=== PATIENT | female | born 1945 | race Caucasian/White ===

== ENCOUNTER 2022-11-03 20:04 | Inpatient (IN) | payer MEDICARE, MEDICAID ==
[~2022-11-03] VITALS: Ht 152.4 cm; Wt 71.2 kg
[2022-11-03 20:03] VITALS: RESP 32
[2022-11-03] MEDS ORDERED: FUROSEMIDE 40MG/4ML VIAL IV ONE (20:30)
[2022-11-03] MEDS ORDERED: ASPIRIN 81MG TABLET PO ONE (20:30)
[2022-11-03 20:34] LABS: BASOPHILS % 0.2 % (0.0-2.0); EOSINOPHILS % 1.7 % (0.0-5.0); HEMATOCRIT. 32.8 % (36.0-48.0); HEMOGLOBIN. 11.2 g/dL (12.0-16.0); MEAN CORPUSCULAR HEMOGLOBIN 30.9 pg (28.0-32.0); MEAN CORPUSCULAR VOLUME 90.7 fL (81.0-99.0); MEAN PLATELET VOLUME 8.1 fl (7.4-10.4); MONOCYTES % 7.1 % (2.0-8.0); PLATELET 221 x1000/uL (130-400); RED BLOOD CELL COUNT 3.61 mill/uL (4.2-5.4); RED CELL DISTRIBUTION WIDTH 14.5 % (11.6-14.6)
[2022-11-03 20:42] LABS: BG CARBOXYHEMOGLOBIN 0.3 % (0.5-1.5); BG DEOXYHEMOGLOBIN 3.1 % (0.0-5.0); BG FRACTION INSPIRED OXYGEN 40; BG HCO3 ACT 20.3 mmol/L (22.0-26.0); BG METHEMOGLOBIN 0.3 % (0.0-1.5); BG OXYGEN SATURATION 96.9 % (92.0-98.5); BG OXYHEMOGLOBIN 96.3 % (94.0-97.0); BG PCO2 30.7 mmHg (35.0-45.0); BG PH 7.438 (7.350-7.450); BG PO2 94.1 mmHg (75.0-100.0); BG SAMPLE SITE LH; BG TOTAL HEMOGLOBIN 11.3 g/dL (12.0-18.0)
[2022-11-03 20:44] LABS: INR 1.2; PARTIAL THROMBOPLASTIN TIME 28.9 sec (23.4-31.0); PROTHROMBIN TIME 12.7 sec (9.6-11.0)
[2022-11-03 20:48] LABS: CHLORIDE 103 mEq/L (98-107)
[2022-11-03] MEDS ORDERED: HYDROCODONE/ACETAMINOPHEN 5/325MG TABLET PO PRN (22:00)
[2022-11-03] MEDS ORDERED: CLONIDINE 0.1MG TABLET PO PRN (22:00)
[2022-11-03] MEDS ORDERED: DOCUSATE SODIUM 100MG CAPSULE PO PRN (22:00)
[2022-11-03] MEDS ORDERED: GUAIFENESIN 200MG/10ML SUGAR FREE UDC PO PRN (22:00)
[2022-11-03] MEDS ORDERED: ACETAMINOPHEN 325MG TABLET PO PRN ×2 (22:00)
[2022-11-03] MEDS ORDERED: ONDANSETRON HCL 4MG/2ML INJ IV PRN (22:00)
[2022-11-03] MEDS ORDERED: MAGNESIUM/ALUMINUM HYDROXIDE/SIMETHICONE 30ML UDC PO PRN (22:00)
[2022-11-03] MEDS ORDERED: IPRATROPIUM/ALBUTEROL 0.5-3(2.5)MG/3ML NEB HHN PRN (22:00)
[2022-11-03] MEDS ORDERED: DEXTROSE 50% WATER 50ML SYRINGE IV PRN (22:00)
[2022-11-03 22:45] VITALS: RESP 24
[2022-11-03 22:48] LABS: TOTAL IRON BINDING CAPACITY 277 ug/dL (250-450)
[2022-11-03 23:07] LABS: FERRITIN 561 ng/mL (10-291)
[2022-11-03 23:20] LABS: FOLIC ACID (FOLATE) SERUM >20 ng/mL ng/mL (>5.38); VITAMIN B12 SERUM 596 pg/mL (211-911)
[2022-11-03 23:21] LABS: CLARITY URINE CLEAR (CLEAR); COLOR URINE YELLOW (YELLOW); KETONES URINE NEGATIVE (NEGATIVE); LEUKOCYTE ESTERASE URINE NEGATIVE (NEGATIVE); NITRITE URINE NEGATIVE (NEGATIVE); OCCULT BLOOD URINE NEGATIVE (NEGATIVE); PROTEIN URINE NEGATIVE (NEGATIVE); SPECIFIC GRAVITY URINE 1.007 (1.005-1.030); UROBILINOGEN URINE 0.2 E.U./dL (0.2-1.0)
[2022-11-03 23:40] LABS: SODIUM URINE RANDOM 87 mEq/L
[2022-11-04] VITALS (13 sets, daily range): BP systolic 127–141; BP diastolic 51–79; PULSE 70–95; RESP 17–33; TEMP 97.6–98; O2SAT 92–96
[2022-11-04] MEDS ORDERED: AVAT20TA PO (02:46)
[2022-11-04] MEDS ORDERED: ATOR-2 PO (02:47)
[2022-11-04] MEDS ORDERED: AMLO-337 MT (02:48)
[2022-11-04] MEDS ORDERED: FERR325T6 PO (02:48)
[2022-11-04] MEDS ORDERED: MECL-159 PO (02:49)
[2022-11-04] MEDS ORDERED: FOLI0.4T6 MT (02:50)
[2022-11-04] MEDS ORDERED: FENO145T25 PO (02:51)
[2022-11-04] MEDS ORDERED: SACU1TAB7 MT (02:51)
[2022-11-04] MEDS ORDERED: MIRT45TA83 PO (02:52)
[2022-11-04] MEDS ORDERED: TIMO15DR12 EACHEYE (02:53)
[2022-11-04] MEDS ORDERED: LEVO100T9 MT (02:54)
[2022-11-04] MEDS ORDERED: ISMO20 MT (02:55)
[2022-11-04] MEDS ORDERED: DOCU100T MT (02:56)
[2022-11-04] MEDS ORDERED: LORA2DIS6 SQ (02:56)
[2022-11-04] MEDS ORDERED: ESOM40CA PO (02:57)
[2022-11-04] MEDS ORDERED: MULT-1116 MT (02:58)
[2022-11-04] MEDS ORDERED: BUPR-46 PO (02:58)
[2022-11-04] MEDS ORDERED: ASPI-986 MT (02:59)
[2022-11-04] MEDS: LORAZEPAM 0.5MG TABLET PO PRN ×2 (04:31→15:57)
[2022-11-04] MEDS: BLOOD SUGAR DIAGNOSTIC STRIP TEST SCH ×5 (07:44→20:03)
[2022-11-04] MEDS ORDERED: INSULIN LISPRO 100 UNITS/ML SUBCUT SCH (08:00)
[2022-11-04] MEDS ORDERED: DEXTROSE 50% WATER 50ML SYRINGE IV PRN (08:45)
[2022-11-04] MEDS: INSULIN LISPRO 100 UNITS/ML SUBCUT SCH ×4 (08:58→20:03)
[2022-11-04] MEDS: LEVOTHYROXINE SODIUM 25MCG TABLET PO SCH (08:59)
[2022-11-04] MEDS: ASPIRIN 81MG EC TABLET PO SCH (08:59)
[2022-11-04] MEDS: FUROSEMIDE 40MG/4ML VIAL IV SCH ×2 (09:00→17:00)
[2022-11-04] MEDS: AMLODIPINE 5MG TABLET PO SCH (09:00)
[2022-11-04 09:01] LABS: BASOPHILS % 0.3 % (0.0-2.0); EOSINOPHILS % 0.4 % (0.0-5.0); HEMATOCRIT. 30.1 % (36.0-48.0); HEMOGLOBIN. 10.4 g/dL (12.0-16.0); LYMPHOCYTES % 7.7 % (20.0-50.0); MEAN CORPUSCULAR HEMOGLOBIN 30.9 pg (28.0-32.0); MEAN CORPUSCULAR VOLUME 89.1 fL (81.0-99.0); MEAN PLATELET VOLUME 8.2 fl (7.4-10.4); MONOCYTES % 9.6 % (2.0-8.0); PLATELET 168 x1000/uL (130-400); RED BLOOD CELL COUNT 3.38 mill/uL (4.2-5.4); RED CELL DISTRIBUTION WIDTH 14.2 % (11.6-14.6)
[2022-11-04] MEDS: ENOXAPARIN 40MG/0.4ML SYR SUBCUT SCH (09:01)
[2022-11-04] MEDS: PANTOPRAZOLE SODIUM 40 MG/VIAL IV SCH (09:03)
[2022-11-04 09:11] LABS: CHLORIDE 105 mEq/L (98-107)
[2022-11-04 09:24] LABS: HDL CHOLESTEROL 60 mg/dL (40-59); LDL CHOLESTEROL 32 mg/dL (5-100); T4 FREE 1.11 ng/dL (0.76-1.46)
[2022-11-04] MEDS ORDERED: NALOXONE HCL 0.4MG/ML VIAL IV PRN (10:45)
[2022-11-04] MEDS ORDERED: BLOOD SUGAR DIAGNOSTIC STRIP TEST SCH (12:30)
[2022-11-04] MEDS: ATORVASTATIN CALCIUM 40MG TABLET PO SCH (20:27)
[2022-11-04] MEDS: IPRATROPIUM/ALBUTEROL 0.5-3(2.5)MG/3ML NEB HHN SCH (20:29)
[2022-11-05] VITALS (10 sets, daily range): BP systolic 126–158; BP diastolic 53–78; PULSE 68–88; RESP 16–24; TEMP 97.9–99.5; O2SAT 96–98
[2022-11-05] MEDS: IPRATROPIUM/ALBUTEROL 0.5-3(2.5)MG/3ML NEB HHN SCH ×4 (00:19→21:05)
[2022-11-05 05:24] LABS: BASOPHILS % 0.5 % (0.0-2.0); EOSINOPHILS % 1.8 % (0.0-5.0); HEMOGLOBIN. 9.4 g/dL (12.0-16.0); LYMPHOCYTES % 15.4 % (20.0-50.0); MEAN CORPUSCULAR VOLUME 89.3 fL (81.0-99.0); MEAN PLATELET VOLUME 8.2 fl (7.4-10.4); MONOCYTES % 10.3 % (2.0-8.0); PLATELET 159 x1000/uL (130-400); RED BLOOD CELL COUNT 3.02 mill/uL (4.2-5.4); RED CELL DISTRIBUTION WIDTH 14.4 % (11.6-14.6)
[2022-11-05 05:37] LABS: CHLORIDE 103 mEq/L (98-107)
[2022-11-05] MEDS: BLOOD SUGAR DIAGNOSTIC STRIP TEST SCH ×4 (06:20→20:12)
[2022-11-05] MEDS: LEVOTHYROXINE SODIUM 25MCG TABLET PO SCH (06:36)
[2022-11-05] MEDS: INSULIN LISPRO 100 UNITS/ML SUBCUT SCH ×4 (06:37→20:24)
[2022-11-05] MEDS: ASPIRIN 81MG EC TABLET PO SCH (09:10)
[2022-11-05] MEDS: FUROSEMIDE 40MG/4ML VIAL IV SCH ×2 (09:10→18:06)
[2022-11-05] MEDS: AMLODIPINE 5MG TABLET PO SCH (09:11)
[2022-11-05] MEDS: ENOXAPARIN 40MG/0.4ML SYR SUBCUT SCH (09:12)
[2022-11-05] MEDS: PANTOPRAZOLE SODIUM 40 MG/VIAL IV SCH (10:16)
[2022-11-05] MEDS: LORAZEPAM 0.5MG TABLET PO PRN ×2 (14:54→20:51)
[2022-11-05] MEDS: SPIRONOLACTONE 25MG TABLET PO SCH (18:09)
[2022-11-05] MEDS: ATORVASTATIN CALCIUM 40MG TABLET PO SCH (20:23)
[2022-11-06] VITALS (8 sets, daily range): BP systolic 117–148; BP diastolic 50–72; PULSE 67–84; RESP 14–20; TEMP 97.5–98.3; O2SAT 97
[2022-11-06] MEDS: IPRATROPIUM/ALBUTEROL 0.5-3(2.5)MG/3ML NEB HHN SCH ×2 (01:20→09:13)
[2022-11-06] MEDS: BLOOD SUGAR DIAGNOSTIC STRIP TEST SCH ×4 (06:17→21:17)
[2022-11-06] MEDS: SPIRONOLACTONE 25MG TABLET PO SCH ×2 (06:17→18:00)
[2022-11-06] MEDS: INSULIN LISPRO 100 UNITS/ML SUBCUT SCH ×4 (06:17→21:00)
[2022-11-06] MEDS: LEVOTHYROXINE SODIUM 25MCG TABLET PO SCH (06:18)
[2022-11-06 08:36] LABS: BASOPHILS % 0.8 % (0.0-2.0); EOSINOPHILS % 5.8 % (0.0-5.0); LYMPHOCYTES % 19.3 % (20.0-50.0); MEAN CORPUSCULAR HEMOGLOBIN 30.7 pg (28.0-32.0); MEAN CORPUSCULAR VOLUME 89.4 fL (81.0-99.0); MEAN PLATELET VOLUME 8.6 fl (7.4-10.4); MONOCYTES % 13.7 % (2.0-8.0); NEUTROPHILS % 60.4 % (40.0-76.0); PLATELET 181 x1000/uL (130-400); RED BLOOD CELL COUNT 3.24 mill/uL (4.2-5.4); RED CELL DISTRIBUTION WIDTH 14.2 % (11.6-14.6)
[2022-11-06 08:42] LABS: CHLORIDE 96 mEq/L (98-107)
[2022-11-06 08:54] LABS: PHOSPHORUS 4.6 mg/dL (2.5-4.9)
[2022-11-06] MEDS: PANTOPRAZOLE SODIUM 40 MG/VIAL IV SCH (10:05)
[2022-11-06] MEDS: ENOXAPARIN 40MG/0.4ML SYR SUBCUT SCH (10:06)
[2022-11-06] MEDS: AMLODIPINE 5MG TABLET PO SCH (10:07)
[2022-11-06] MEDS: ASPIRIN 81MG EC TABLET PO SCH (10:08)
[2022-11-06] MEDS: FUROSEMIDE 40MG/4ML VIAL IV SCH ×2 (10:08→17:00)
[2022-11-06] MEDS: LORAZEPAM 0.5MG TABLET PO PRN ×2 (14:43→21:36)
[2022-11-06] MEDS: ATORVASTATIN CALCIUM 40MG TABLET PO SCH (21:30)
[2022-11-07] VITALS: BP 145/60; PULSE 90; RESP 18; TEMP 98.4
[2022-11-07] MEDS: SPIRONOLACTONE 25MG TABLET PO SCH (05:55)
[2022-11-07 06:00] VITALS: BP 132/65; PULSE 68; RESP 18; TEMP 98.6
[2022-11-07] MEDS: LEVOTHYROXINE SODIUM 25MCG TABLET PO SCH (06:10)
[2022-11-07] MEDS: BLOOD SUGAR DIAGNOSTIC STRIP TEST SCH (06:10)
[2022-11-07 06:28] LABS: HEMATOCRIT. 29.6 % (36.0-48.0); HEMOGLOBIN. 10.4 g/dL (12.0-16.0); MEAN CORPUSCULAR VOLUME 88.2 fL (81.0-99.0); MEAN PLATELET VOLUME 8.3 fl (7.4-10.4); PLATELET 202 x1000/uL (130-400); RED BLOOD CELL COUNT 3.36 mill/uL (4.2-5.4); RED CELL DISTRIBUTION WIDTH 13.9 % (11.6-14.6)
[2022-11-07 06:31] LABS: CHLORIDE 95 mEq/L (98-107)
[2022-11-07] MEDS: INSULIN LISPRO 100 UNITS/ML SUBCUT SCH (07:56)
[2022-11-07 08:00] VITALS: BP 138/66; PULSE 67; RESP 20; TEMP 97.3
[2022-11-07] MEDS: ENOXAPARIN 40MG/0.4ML SYR SUBCUT SCH (08:22)
[2022-11-07] MEDS: ASPIRIN 81MG EC TABLET PO SCH (08:23)
[2022-11-07] MEDS: FUROSEMIDE 40MG/4ML VIAL IV SCH (08:23)
[2022-11-07] MEDS: AMLODIPINE 5MG TABLET PO SCH (08:23)
[2022-11-07] MEDS: PANTOPRAZOLE SODIUM 40 MG/VIAL IV SCH (08:23)
[2022-11-07] MEDS ORDERED: FURO-151 MT (08:28)
[2022-11-07] MEDS ORDERED: AMLO2.5T2 MT (08:28)
[2022-11-07 09:31] LABS: PLATELET ESTIMATE NORMAL
[2022-11-07 09:40] VITALS: BP 138/66; PULSE 67; TEMP 97.3; O2SAT 96
== END 2022-11-07 11:00 | disposition home health service (06) | DRG 291 ==
LOC: ER 20:04 → ENRESERV 11-04 01:47 → 5EST 11-04 02:12 → 8WST 11-04 14:50
PROVIDERS: ADMIT Internal Medicine; ATTEND Internal Medicine
PROC: 5A09357 Assistance with Respiratory Ventilation, Less than 24 Consecutive Hours, Continuous Positive Airway Pressure (ICD-10-PCS; principal; 2022-11-03)
DX: I11.0 Hypertensive heart disease with heart failure (principal); I50.43 Acute on chronic combined systolic (congestive) and diastolic (congestive) heart failure; J96.01 Acute respiratory failure with hypoxia; N17.0 Acute kidney failure with tubular necrosis; E87.1 Hypo-osmolality and hyponatremia; E03.9 Hypothyroidism, unspecified; E11.9 Type 2 diabetes mellitus without complications; E78.5 Hyperlipidemia, unspecified; D64.9 Anemia, unspecified; E83.51 Hypocalcemia; F32.A Depression, unspecified; I25.2 Old myocardial infarction; F41.9 Anxiety disorder, unspecified; Z88.0 Allergy status to penicillin; Z95.2 Presence of prosthetic heart valve; Z95.0 Presence of cardiac pacemaker; M81.0 Age-related osteoporosis without current pathological fracture
CPT/HCPCS: 36415; 36600; 71045; 76770; 80053; 80061; 81003; 82375; 82607; 82728; 82746; 82805; 82947; 82962; 83036; 83540; 83550; 83735; 83880; 83935; 84100; 84300; 84439; 84443; 84484; 85025; 85379; 93005; 93306; 93970; 94640; 94660; 97162; 99291; C9113; J1650; J1815; J1940

== ENCOUNTER 2022-12-07 04:56 | Inpatient (IN) | payer MEDICARE, MEDICAID ==
[2022-12-07] VITALS (8 sets, daily range): BP systolic 125–127; BP diastolic 53–64; PULSE 63–69; RESP 15–33; TEMP 98.1; O2SAT 97–99
[~2022-12-07] VITALS: Ht 160 cm; Wt 83.3 kg
[~2022-12-07 04:56] MED LIST: AMLO2.5T2 MT; ASPI-986 MT; ATOR-2 PO; AVAT20TA PO; BUPR-46 PO; DOCU100T MT; ESOM40CA PO; FENO145T25 PO; FERR325T6 PO; FOLI0.4T6 MT; FURO-151 MT; ISMO20 MT; LEVO100T9 MT; MULT-1116 MT; SACU1TAB7 MT; TIMO15DR12 EACHEYE
[2022-12-07] MEDS ORDERED: NITROGLYCERIN OINT 1GM/INCH UDPKT TD ONE (05:15)
[2022-12-07] MEDS ORDERED: FUROSEMIDE 40MG/4ML VIAL IV ONE (05:15)
[2022-12-07] MEDS ORDERED: NITROGLYCERIN 0.4MG TABLET SL SL PRN (05:15)
[2022-12-07] MEDS ORDERED: HYDRALAZINE 20MG/ML VIAL IV ONE (05:30)
[2022-12-07 05:49] LABS: BASOPHILS % 0.8 % (0.0-2.0); EOSINOPHILS % 4.6 % (0.0-5.0); HEMATOCRIT. 33.5 % (36.0-48.0); HEMOGLOBIN. 11.4 g/dL (12.0-16.0); LYMPHOCYTES % 41.2 % (20.0-50.0); MEAN CORPUSCULAR HEMOGLOBIN 31.1 pg (28.0-32.0); MEAN CORPUSCULAR VOLUME 91.3 fL (81.0-99.0); MEAN PLATELET VOLUME 8.6 fl (7.4-10.4); MONOCYTES % 10.5 % (2.0-8.0); NEUTROPHILS % 42.9 % (40.0-76.0); PLATELET 234 x1000/uL (130-400); RED BLOOD CELL COUNT 3.67 mill/uL (4.2-5.4); RED CELL DISTRIBUTION WIDTH 14.8 % (11.6-14.6)
[2022-12-07 06:04] LABS: INR 1.2; PROTHROMBIN TIME 12.8 sec (9.6-11.0)
[2022-12-07 06:05] LABS: CHLORIDE 106 mEq/L (98-107)
[2022-12-07 06:42] LABS: BG BASE EXCESS 1.3 mmol/L (-2.0-2.0); BG CARBOXYHEMOGLOBIN 0.6 % (0.5-1.5); BG DEOXYHEMOGLOBIN 0.4 % (0.0-5.0); BG FRACTION INSPIRED OXYGEN 100; BG HCO3 ACT 25.9 mmol/L (22.0-26.0); BG METHEMOGLOBIN 0.4 % (0.0-1.5); BG OXYGEN SATURATION 99.6 % (92.0-98.5); BG OXYHEMOGLOBIN 98.6 % (94.0-97.0); BG PH 7.419 (7.350-7.450); BG SAMPLE SITE RIGHT RADIAL; BG TOTAL HEMOGLOBIN 14.7 g/dL (12.0-18.0); BG VENT MODE MASK - BIPAP
[2022-12-07] MEDS ORDERED: MAGNESIUM/ALUMINUM HYDROXIDE/SIMETHICONE 30ML UDC PO PRN (08:30)
[2022-12-07] MEDS ORDERED: ACETAMINOPHEN 325MG TABLET PO PRN ×2 (08:30)
[2022-12-07] MEDS ORDERED: DOCUSATE SODIUM 100MG CAPSULE PO PRN (08:30)
[2022-12-07] MEDS ORDERED: IPRATROPIUM/ALBUTEROL 0.5-3(2.5)MG/3ML NEB NEB PRN (08:30)
[2022-12-07] MEDS ORDERED: NA PHOS,M-B/NA PHOS,DI-BA ENEMA 118ML PR PRN (08:30)
[2022-12-07] MEDS ORDERED: GUAIFENESIN 200MG/10ML SUGAR FREE UDC PO PRN (08:30)
[2022-12-07] MEDS ORDERED: DEXTROSE 50% WATER 50ML SYRINGE IV PRN (08:30)
[2022-12-07] MEDS ORDERED: ONDANSETRON HCL 4MG/2ML INJ IV PRN (08:30)
[2022-12-07] MEDS ORDERED: CLONIDINE 0.1MG TABLET PO PRN (08:30)
[2022-12-07] MEDS ORDERED: FAMOTIDINE 20MG TABLET PO SCH (09:00)
[2022-12-07] MEDS: SPIRONOLACTONE 25MG TABLET PO SCH ×2 (12:20→20:15)
[2022-12-07] MEDS: LOSARTAN POTASSIUM 50 MG TABLET PO SCH (12:20)
[2022-12-07] MEDS: AMLODIPINE 5MG TABLET PO SCH (12:20)
[2022-12-07] MEDS: IPRATROPIUM/ALBUTEROL 0.5-3(2.5)MG/3ML NEB HHN SCH ×2 (14:15→20:46)
[2022-12-07] MEDS: INSULIN GLARGINE 100 UNITS/ML SUBCUT SCH (14:23)
[2022-12-07] MEDS: INSULIN LISPRO 100 UNITS/ML SUBCUT SCH ×3 (14:28→20:57)
[2022-12-07] MEDS: ENOXAPARIN 30MG/0.3ML SYR SUBCUT SCH (14:30)
[2022-12-07 15:21] LABS: CREATINE KINASE MB FRACTION 1.5 ng/mL (0.5-3.6)
[2022-12-07] MEDS: LORAZEPAM 0.5MG TABLET PO SCH (18:09)
[2022-12-07] MEDS: ZOLPIDEM TARTRATE 5MG TABLET PO PRN (20:15)
[2022-12-07] MEDS: MIRTAZAPINE 15MG TABLET PO SCH (20:15)
[2022-12-07] MEDS: BLOOD SUGAR DIAGNOSTIC STRIP TEST SCH (21:00)
[2022-12-08] VITALS (16 sets, daily range): BP systolic 98–142; BP diastolic 48–94; PULSE 60–75; RESP 6–32; TEMP 97.6–98.1; O2SAT 98–100
[2022-12-08 00:40] LABS: CREATINE KINASE MB FRACTION 1.5 ng/mL (0.5-3.6)
[2022-12-08] MEDS: IPRATROPIUM/ALBUTEROL 0.5-3(2.5)MG/3ML NEB HHN SCH ×4 (00:49→20:57)
[2022-12-08 06:44] LABS: HEMATOCRIT. 31.3 % (36.0-48.0); HEMOGLOBIN. 10.7 g/dL (12.0-16.0); MEAN CORPUSCULAR HEMOGLOBIN 30.5 pg (28.0-32.0); MEAN CORPUSCULAR VOLUME 89.5 fL (81.0-99.0); MEAN PLATELET VOLUME 8.4 fl (7.4-10.4); PLATELET 181 x1000/uL (130-400); RED CELL DISTRIBUTION WIDTH 14.6 % (11.6-14.6)
[2022-12-08] MEDS: LEVOTHYROXINE SODIUM 100MCG TABLET PO SCH (07:36)
[2022-12-08] MEDS: BLOOD SUGAR DIAGNOSTIC STRIP TEST SCH ×4 (07:55→20:12)
[2022-12-08] MEDS: INSULIN LISPRO 100 UNITS/ML SUBCUT SCH ×4 (08:00→20:30)
[2022-12-08] MEDS: ASPIRIN 81MG TABLET PO SCH (08:41)
[2022-12-08] MEDS: AMLODIPINE 5MG TABLET PO SCH (08:42)
[2022-12-08] MEDS: SPIRONOLACTONE 25MG TABLET PO SCH ×2 (08:42→20:33)
[2022-12-08] MEDS: LOSARTAN POTASSIUM 50 MG TABLET PO SCH (08:42)
[2022-12-08] MEDS: FAMOTIDINE 20MG TABLET PO SCH (08:42)
[2022-12-08] MEDS ORDERED: PNEUMOCOCCAL 23-VAL P-SAC VAC 0.5 ML IM ONE (09:00)
[2022-12-08] MEDS: LORAZEPAM 0.5MG TABLET PO SCH ×2 (09:48→17:55)
[2022-12-08] MEDS: ISOSORBIDE MONONITRATE 30MG TABLET SR 24HR PO SCH (09:49)
[2022-12-08] MEDS: ENOXAPARIN 30MG/0.3ML SYR SUBCUT SCH (09:50)
[2022-12-08] MEDS: INSULIN GLARGINE 100 UNITS/ML SUBCUT SCH (09:55)
[2022-12-08 14:04] LABS: CHLORIDE 102 mEq/L (98-107)
[2022-12-08 14:52] LABS: PHOSPHORUS 4.7 mg/dL (2.5-4.9)
[2022-12-08 19:11] LABS: PLATELET ESTIMATE NORMAL
[2022-12-08] MEDS: FUROSEMIDE 40MG/4ML VIAL IVP SCH ×2 (20:31→20:32)
[2022-12-08] MEDS: MIRTAZAPINE 15MG TABLET PO SCH (20:31)
[2022-12-08] MEDS: ZOLPIDEM TARTRATE 5MG TABLET PO PRN (21:58)
[2022-12-09] VITALS (13 sets, daily range): BP systolic 111–158; BP diastolic 51–80; PULSE 60–72; RESP 5–22; TEMP 97.5–98.6; O2SAT 97–100
[2022-12-09] MEDS: IPRATROPIUM/ALBUTEROL 0.5-3(2.5)MG/3ML NEB HHN SCH ×3 (01:49→14:31)
[2022-12-09 05:44] LABS: HEMOGLOBIN 10.2 g/dL (12.0-16.0); MEAN CORPUSCULAR HEMOGLOBIN 30.6 pg (28.0-32.0); MEAN CORPUSCULAR VOLUME 89.9 fL (81.0-99.0); PLATELET 172 x1000/uL (130-400); RED BLOOD CELL COUNT 3.34 mill/uL (4.2-5.4); RED CELL DISTRIBUTION WIDTH 14.7 % (11.6-14.6)
[2022-12-09 07:23] LABS: PHOSPHORUS 4.2 mg/dL (2.5-4.9)
[2022-12-09] MEDS: BLOOD SUGAR DIAGNOSTIC STRIP TEST SCH ×3 (07:26→17:33)
[2022-12-09] MEDS: INSULIN LISPRO 100 UNITS/ML SUBCUT SCH ×3 (08:00→17:35)
[2022-12-09] MEDS: LEVOTHYROXINE SODIUM 100MCG TABLET PO SCH (08:07)
[2022-12-09] MEDS: ASPIRIN 81MG TABLET PO SCH (08:17)
[2022-12-09] MEDS: FUROSEMIDE 40MG/4ML VIAL IVP SCH (08:18)
[2022-12-09] MEDS: FAMOTIDINE 20MG TABLET PO SCH (08:18)
[2022-12-09] MEDS: LOSARTAN POTASSIUM 50 MG TABLET PO SCH (08:19)
[2022-12-09] MEDS: SPIRONOLACTONE 25MG TABLET PO SCH (08:20)
[2022-12-09] MEDS: AMLODIPINE 5MG TABLET PO SCH (08:20)
[2022-12-09] MEDS: ISOSORBIDE MONONITRATE 30MG TABLET SR 24HR PO SCH (08:24)
[2022-12-09] MEDS: LORAZEPAM 0.5MG TABLET PO SCH ×2 (08:25→17:33)
[2022-12-09] MEDS: ENOXAPARIN 30MG/0.3ML SYR SUBCUT SCH (09:29)
[2022-12-09] MEDS ORDERED: INSULIN GLARGINE 100 UNITS/ML SUBCUT SCH (10:00)
[2022-12-09] MEDS ORDERED: SPIR25TA PO (12:23)
== END 2022-12-09 18:00 | disposition home or self-care (01) | DRG 189 ==
LOC: ER 04:56 → 5EST 06:17 → SUPCPDRO 08:26
PROVIDERS: ADMIT Internal Medicine; ATTEND Internal Medicine
PROC: 5A09357 Assistance with Respiratory Ventilation, Less than 24 Consecutive Hours, Continuous Positive Airway Pressure (ICD-10-PCS; principal; 2022-12-07)
DX: J96.01 Acute respiratory failure with hypoxia (principal); I50.23 Acute on chronic systolic (congestive) heart failure; N17.9 Acute kidney failure, unspecified; I11.0 Hypertensive heart disease with heart failure; E11.9 Type 2 diabetes mellitus without complications; I25.10 Atherosclerotic heart disease of native coronary artery without angina pectoris; J44.9 Chronic obstructive pulmonary disease, unspecified; F41.9 Anxiety disorder, unspecified; F32.A Depression, unspecified; E03.9 Hypothyroidism, unspecified; E78.5 Hyperlipidemia, unspecified; Z88.0 Allergy status to penicillin; Z95.0 Presence of cardiac pacemaker; Z79.82 Long term (current) use of aspirin; Z79.899 Other long term (current) drug therapy; Z98.891 History of uterine scar from previous surgery; Z95.5 Presence of coronary angioplasty implant and graft
CPT/HCPCS: 36415; 36600; 71045; 80048; 80053; 82375; 82550; 82553; 82805; 82962; 83735; 83880; 84100; 84484; 85025; 85027; 93005; 93970; 94640; 94660; 99285; J1650; J1815; J1940

== ENCOUNTER 2025-04-30 13:29 | Inpatient (IN) | payer MEDICARE, MEDICAID ==
[~2025-04-30] VITALS: Ht 167.6 cm; Wt 83.1 kg
[~2025-04-30 13:29] MED LIST changes: -AMLO2.5T2 MT; -ISMO20 MT; +LANTUSUD SUBCUT; -LEVO100T9 MT; +LEVO137T32 PO; +MECL-299 PO; +MIRT-89 PO; -SACU1TAB7 MT; +SERT100T PO; +SPIR25TA PO
[2025-04-30 13:31] VITALS: O2SAT 100
[2025-04-30 14:09] LABS: BASOPHILS % 0.7 % (0.0-2.0); EOSINOPHILS % 1.5 % (0.0-5.0); HEMATOCRIT. 34.9 % (36.0-48.0); HEMOGLOBIN. 11.6 g/dL (12.0-16.0); LYMPHOCYTES % 8.1 % (20.0-50.0); MEAN PLATELET VOLUME 8.9 fl (7.4-10.4); MONOCYTES % 5.0 % (2.0-8.0); NEUTROPHILS % 84.7 % (40.0-76.0); PLATELET 133 x1000/uL (130-400); RED BLOOD CELL COUNT 3.80 mill/uL (4.2-5.4); RED CELL DISTRIBUTION WIDTH 16.1 % (11.6-14.6)
[2025-04-30 14:26] LABS: CREATININE 1.5 mg/dL (0.6-1.0); TROPONIN I HIGH SENSITIVITY 31 ng/L (3.0-34); UREA NITROGEN BLOOD 23.0 mg/dL (9-23)
[2025-04-30] MEDS: FUROSEMIDE 40MG/4ML VIAL IVP NR (15:04)
[2025-04-30] MEDS: LEVOFLOXACIN 500MG PREMIX 100 ML IV NR (15:06)
[2025-04-30 16:00] VITALS: BP 136/58; PULSE 69; RESP 16; TEMP 36.4; O2SAT 100
[2025-04-30 16:56] LABS: TROPONIN I HIGH SENSITIVITY 187 ng/L (3.0-34)
[2025-04-30] MEDS ORDERED: ESOM40SU PO (19:26)
[2025-04-30] MEDS ORDERED: TIMO1DRO2 EACHEYE (19:29)
[2025-04-30] MEDS ORDERED: DOCU-422 MT (19:39)
[2025-04-30] MEDS ORDERED: CALC-1139 MT (19:39)
[2025-04-30] MEDS ORDERED: L. A1TAB14 (19:39)
[2025-04-30] MEDS ORDERED: SACU1TAB4 MT (19:39)
[2025-04-30] MEDS ORDERED: FOLI-43 MT (19:47)
[2025-04-30] MEDS ORDERED: LYR25 MT (19:47)
[2025-04-30] MEDS ORDERED: AMLO2.5T45 PO (19:47)
[2025-04-30] MEDS ORDERED: ISOS30TA91 MT (19:47)
[2025-04-30 20:00] VITALS: BP 143/65; PULSE 71; RESP 19; TEMP 36.4; O2SAT 100
[2025-04-30] MEDS ORDERED: IPRATROPIUM/ALBUTEROL 0.5-3(2.5)MG/3ML NEB HHN PRN (20:45)
[2025-04-30] MEDS ORDERED: CLONIDINE 0.1MG TABLET PO PRN (20:45)
[2025-04-30] MEDS ORDERED: GUAIFENESIN 200MG/10ML SUGAR FREE UDC PO PRN (20:45)
[2025-04-30] MEDS ORDERED: ACETAMINOPHEN 325MG TABLET PO PRN (20:45)
[2025-04-30] MEDS: SACUBITRIL/VALSARTAN 49MG/51MG TABLET PO SCH (21:08)
[2025-04-30] MEDS: ATORVASTATIN CALCIUM 40MG TABLET PO SCH (21:08)
[2025-04-30] MEDS: ENOXAPARIN 100MG/ML SYR SUBCUT SCH (21:08)
[2025-04-30] MEDS: LORAZEPAM 0.5MG TABLET PO PRN (21:09)
[2025-04-30] MEDS: ACETAMINOPHEN 325MG TABLET PO PRN (21:09)
[2025-04-30] MEDS ORDERED: DEXTROSE 50% WATER 50ML SYRINGE IV PRN (22:30)
[2025-04-30] MEDS ORDERED: HYDRALAZINE 20MG/ML VIAL IV PRN (23:00)
[2025-05-01] VITALS (7 sets, daily range): BP systolic 117–147; BP diastolic 54–65; PULSE 62–77; RESP 15–20; TEMP 36.3–36.7; O2SAT 97–100
[2025-05-01 00:51] LABS: PHOSPHORUS 3.8 mg/dL (2.5-4.9)
[2025-05-01 01:02] LABS: TROPONIN I HIGH SENSITIVITY 1688 ng/L (3.0-34)
[2025-05-01] MEDS: ISOSORBIDE MONONITRATE 30MG TABLET SR 24HR PO SCH (01:13)
[2025-05-01 01:27] LABS: HEPATITIS C AB NON REACTIVE (Neg) (Negative)
[2025-05-01 06:10] LABS: CLARITY URINE CLOUDY (CLEAR); COLOR URINE DARK YELLOW (YELLOW); GLUCOSE URINE NEGATIVE (NEGATIVE); KETONES URINE 1+ (NEGATIVE); LEUKOCYTE ESTERASE URINE 1+ (NEGATIVE); NITRITE URINE NEGATIVE (NEGATIVE); OCCULT BLOOD URINE NEGATIVE (NEGATIVE); PH URINE 5.5 (4.5-8.0); PROTEIN URINE 1+ (NEGATIVE); SPECIFIC GRAVITY URINE 1.024 (1.005-1.030); UROBILINOGEN URINE 1.0 E.U./dL (0.2-1.0)
[2025-05-01] MEDS: LEVOTHYROXINE SODIUM 137MCG TABLET PO SCH (06:42)
[2025-05-01] MEDS: PANTOPRAZOLE 40MG DR TABLET PO SCH ×2 (06:42→20:34)
[2025-05-01] MEDS: BLOOD SUGAR DIAGNOSTIC STRIP TEST SCH (06:43)
[2025-05-01 07:13] LABS: BACTERIA URINE TRACE; SQUAMOUS EPITHELIAL CELL URINE 2+ /lpf (RARE/1+)
[2025-05-01 07:14] LABS: RBC URINE 0-2 /hpf (0-2)
[2025-05-01] MEDS ORDERED: PANTOPRAZOLE 40MG DR TABLET PO SCH (07:20)
[2025-05-01] MEDS: INSULIN LISPRO 100 UNITS/ML SUBCUT SCH ×2 (07:50→15:30)
[2025-05-01 08:18] LABS: INR 1.3
[2025-05-01 08:21] LABS: BASOPHILS % 0.5 % (0.0-2.0); EOSINOPHILS % 1.9 % (0.0-5.0); HEMATOCRIT. 35.1 % (36.0-48.0); HEMOGLOBIN. 11.6 g/dL (12.0-16.0); LYMPHOCYTES % 13.0 % (20.0-50.0); MEAN PLATELET VOLUME 10.4 fl (7.4-10.4); MONOCYTES % 7.7 % (2.0-8.0); NEUTROPHILS % 76.9 % (40.0-76.0); PLATELET 122 x1000/uL (130-400); RED BLOOD CELL COUNT 3.88 mill/uL (4.2-5.4); RED CELL DISTRIBUTION WIDTH 16.0 % (11.6-14.6)
[2025-05-01 08:41] LABS: TRIGLYCERIDE 142 mg/dL (0-150)
[2025-05-01 08:42] LABS: LDL CHOLESTEROL 41 mg/dL (5-100)
[2025-05-01 08:43] LABS: T4 FREE 1.32 ng/dL (0.89-1.76)
[2025-05-01 08:45] LABS: FOLIC ACID (FOLATE) SERUM > 20.00 ng/mL (>5.38); VITAMIN B12 SERUM 507 pg/mL (211-911)
[2025-05-01] MEDS: AMLODIPINE 2.5MG TABLET PO SCH (09:00)
[2025-05-01] MEDS: ASPIRIN 81MG TABLET PO SCH (09:24)
[2025-05-01] MEDS: SPIRONOLACTONE 25MG TABLET PO SCH (09:25)
[2025-05-01] MEDS: FUROSEMIDE 40MG/4ML VIAL IVP SCH (09:26)
[2025-05-01] MEDS: DOCUSATE SODIUM 100MG CAPSULE PO PRN (10:46)
[2025-05-01] MEDS: INSULIN GLARGINE 100 UNITS/ML SUBCUT SCH (11:52)
[2025-05-01 12:55] LABS: CREATININE 1.5 mg/dL (0.6-1.0); UREA NITROGEN BLOOD 26.0 mg/dL (9-23)
[2025-05-01] MEDS: ACETAMINOPHEN 325MG TABLET PO PRN (20:32)
[2025-05-01] MEDS: MELATONIN 3MG TABLET PO SCH (20:32)
[2025-05-01] MEDS: ENOXAPARIN 80MG/0.8ML SYR SUBCUT SCH (20:33)
[2025-05-01 22:09] LABS: INR 1.3
[2025-05-01 22:28] LABS: TROPONIN I HIGH SENSITIVITY 596 ng/L (3.0-34)
[2025-05-02] VITALS: BP 122/46; PULSE 68; RESP 19; TEMP 36.3; O2SAT 98
[2025-05-02 04:00] VITALS: BP 84/36; PULSE 59; RESP 18; TEMP 36.2; O2SAT 100
[2025-05-02] MEDS ORDERED: PANTOPRAZOLE 40MG DR TABLET PO SCH (07:20)
[2025-05-02 08:00] VITALS: BP 154/60; PULSE 70; RESP 18; TEMP 36.2; O2SAT 96
[2025-05-02 08:17] LABS: BASOPHILS % 0.7 % (0.0-2.0); EOSINOPHILS % 2.2 % (0.0-5.0); HEMATOCRIT. 33.9 % (36.0-48.0); HEMOGLOBIN. 11.5 g/dL (12.0-16.0); LYMPHOCYTES % 22.7 % (20.0-50.0); MEAN PLATELET VOLUME 10.5 fl (7.4-10.4); MONOCYTES % 13.3 % (2.0-8.0); NEUTROPHILS % 61.1 % (40.0-76.0); PLATELET 122 x1000/uL (130-400); RED BLOOD CELL COUNT 3.75 mill/uL (4.2-5.4); RED CELL DISTRIBUTION WIDTH 15.4 % (11.6-14.6)
[2025-05-02] MEDS ORDERED: ASPIRIN 81MG TABLET PO SCH (09:00)
[2025-05-02 09:14] LABS: TROPONIN I HIGH SENSITIVITY 505 ng/L (3.0-34)
[2025-05-02] MEDS ORDERED: DIPHENHYDRAMINE 50MG/ML VIAL ONE (09:14)
[2025-05-02] MEDS ORDERED: VERAPAMIL HCL 2.5 MG/1 ML 2ML VIAL IV ONE (09:14)
[2025-05-02] MEDS ORDERED: MIDAZOLAM HCL 2 MG/2 ML VIAL ONE (09:15)
[2025-05-02] MEDS ORDERED: LIDOCAINE HCL 1% 20ML VIAL ONE (09:15)
[2025-05-02] MEDS ORDERED: FENTANYL CITRATE/PF 50MCG/ML 2ML VIAL ONE (09:15)
[2025-05-02] MEDS ORDERED: IODIXANOL 320MG/ML 100 ML BOTTLE IV ONE ×2 (09:15→10:13)
[2025-05-02] MEDS ORDERED: HEPARIN 1000 UNITS/ML 10ML ONE (09:15)
[2025-05-02 10:43] LABS: CREATININE 1.6 mg/dL (0.6-1.0); UREA NITROGEN BLOOD 31 mg/dL (9-23)
[2025-05-02 10:46] LABS: PHOSPHORUS 4.4 mg/dL (2.5-4.9)
[2025-05-02] MEDS ORDERED: ATROPINE SULFATE 1MG/10ML SYR IV PRN (11:15)
[2025-05-02] MEDS ORDERED: ACETAMINOPHEN 325MG TABLET PO PRN (11:15)
[2025-05-02 12:00] VITALS: BP 140/56; PULSE 73; RESP 15; TEMP 36.6; O2SAT 100
[2025-05-02] MEDS: PANTOPRAZOLE 40MG DR TABLET PO SCH (15:22)
[2025-05-02 16:00] VITALS: BP 124/55; PULSE 74; RESP 14; TEMP 36.7; O2SAT 96
[2025-05-02 20:00] VITALS: BP 125/65; PULSE 80; RESP 15; TEMP 36.7; O2SAT 98
[2025-05-02] MEDS: MECLIZINE 25MG TABLET PO SCH (20:55)
[2025-05-02] MEDS: MIRTAZAPINE 15MG TABLET PO SCH (20:55)
[2025-05-02] MEDS: ENOXAPARIN 40MG/0.4ML SYR SUBCUT SCH (21:00)
[2025-05-03] VITALS (7 sets, daily range): BP systolic 96–140; BP diastolic 48–81; PULSE 63–79; RESP 13–20; TEMP 36.6–37; O2SAT 95–100
[2025-05-03] MEDS: ONDANSETRON HCL 4MG/2ML INJ IV PRN (05:57)
[2025-05-03] MEDS ORDERED: PATIENT'S OWN MEDICATION PO SCH (06:50)
[2025-05-03] MEDS ORDERED: PANTOPRAZOLE 40MG DR TABLET PO SCH ×2 (06:50→09:00)
[2025-05-03 07:58] LABS: BASOPHILS % 1.1 % (0.0-2.0); EOSINOPHILS % 2.6 % (0.0-5.0); HEMATOCRIT. 34.5 % (36.0-48.0); HEMOGLOBIN. 11.6 g/dL (12.0-16.0); LYMPHOCYTES % 13.7 % (20.0-50.0); MEAN PLATELET VOLUME 9.1 fl (7.4-10.4); MONOCYTES % 12.1 % (2.0-8.0); NEUTROPHILS % 70.5 % (40.0-76.0); PLATELET 122 x1000/uL (130-400); RED BLOOD CELL COUNT 3.82 mill/uL (4.2-5.4); RED CELL DISTRIBUTION WIDTH 15.8 % (11.6-14.6)
[2025-05-03 08:17] LABS: CREATININE 1.7 mg/dL (0.6-1.0); TROPONIN I HIGH SENSITIVITY 219 ng/L (3.0-34); UREA NITROGEN BLOOD 28 mg/dL (9-23)
[2025-05-03 08:19] LABS: PHOSPHORUS 3.7 mg/dL (2.5-4.9)
[2025-05-03] MEDS ORDERED: ASPI-986 MT (13:13)
[2025-05-03] MEDS ORDERED: LANTUSUD SUBCUT (13:13)
[2025-05-03] MEDS ORDERED: LEVO137T32 PO (13:13)
[2025-05-03] MEDS ORDERED: ATOR-2 PO (13:13)
[2025-05-03] MEDS ORDERED: AMLO2.5T45 PO (13:13)
[2025-05-03] MEDS ORDERED: SPIR25TA PO (13:13)
[2025-05-03] MEDS ORDERED: FURO-151 MT (13:13)
[2025-05-03] MEDS: MAGNESIUM/ALUMINUM HYDROXIDE/SIMETHICONE 30ML UDC PO PRN (18:05)
== END 2025-05-03 22:26 | disposition home or self-care (01) | DRG 280 ==
LOC: ER 13:29 → 6WST 14:26 → EDBEDREQ 14:28 → EDBEDREQTM 14:28 → 3WST 05-02 11:56
PROVIDERS: ADMIT Internal Medicine; ATTEND Internal Medicine
PROC: 4A023N7 Measurement of Cardiac Sampling and Pressure, Left Heart, Percutaneous Approach (ICD-10-PCS; principal; 2025-05-02)
PROC: B211YZZ Fluoroscopy of Multiple Coronary Arteries using Other Contrast (ICD-10-PCS; 2025-05-02)
PROC: B41FYZZ Fluoroscopy of Right Lower Extremity Arteries using Other Contrast (ICD-10-PCS; 2025-05-02)
PROC: B41CYZZ Fluoroscopy of Pelvic Arteries using Other Contrast (ICD-10-PCS; 2025-05-02)
DX: I13.0 Hypertensive heart and chronic kidney disease with heart failure and stage 1 through stage 4 chronic kidney disease, or unspecified chronic kidney disease (principal); I21.A1 Myocardial infarction type 2; I50.23 Acute on chronic systolic (congestive) heart failure; N17.9 Acute kidney failure, unspecified; D63.1 Anemia in chronic kidney disease; E11.65 Type 2 diabetes mellitus with hyperglycemia; N18.9 Chronic kidney disease, unspecified; I34.0 Nonrheumatic mitral (valve) insufficiency; E03.9 Hypothyroidism, unspecified; F32.A Depression, unspecified; I25.10 Atherosclerotic heart disease of native coronary artery without angina pectoris; I44.7 Left bundle-branch block, unspecified; E11.22 Type 2 diabetes mellitus with diabetic chronic kidney disease; E78.5 Hyperlipidemia, unspecified; I25.2 Old myocardial infarction; I42.9 Cardiomyopathy, unspecified; R09.02 Hypoxemia; Z79.4 Long term (current) use of insulin; Z88.0 Allergy status to penicillin; Z95.0 Presence of cardiac pacemaker; E11.42 Type 2 diabetes mellitus with diabetic polyneuropathy
CPT/HCPCS: 36415; 71045; 80048; 80061; 81003; 82607; 82746; 82962; 83036; 83540; 83550; 83735; 83880; 84100; 84439; 84443; 84484; 85025; 86705; 87340; 93005; 93306; 93458; 93970; 96365; 96375; 99291; A4606; A4615; C1769; C1887; C1893; J1200; J1644; J1650; J1815; J1938; J1956; J2003; J2250; J2405; J3010; J3490; J8597; Q9967